=== PATIENT | male | born 1955 | race African-American/Black ===

== ENCOUNTER 2019-09-15 13:38 | Emergency (ER) | payer MEDICARE, MEDICAID ==
[~2019-09-15] VITALS: Ht 182.9 cm; Wt 91.0 kg
[2019-09-15 13:52] VITALS: BP 137/87
== END 2019-09-15 14:37 | disposition left against medical advice (07) ==
LOC: ER 14:17
DX: R13.10 Dysphagia, unspecified (principal); E78.00 Pure hypercholesterolemia, unspecified; I10 Essential (primary) hypertension; E05.90 Thyrotoxicosis, unspecified without thyrotoxic crisis or storm
CPT/HCPCS: 99283

== ENCOUNTER 2019-09-21 16:04 | Emergency (ER) | payer BC, MEDICAID ==
[~2019-09-21] VITALS: Ht 177.8 cm; Wt 110.0 kg
[2019-09-21] MEDS ORDERED: KETOROLAC 60MG/2ML VIAL IM ONE (17:30)
[2019-09-21 20:00] VITALS: BP 133/74
== END 2019-09-21 20:05 | disposition home or self-care (01) ==
LOC: ER 16:04
DX: R13.10 Dysphagia, unspecified (principal); M54.2 Cervicalgia; E78.00 Pure hypercholesterolemia, unspecified; I10 Essential (primary) hypertension; E05.90 Thyrotoxicosis, unspecified without thyrotoxic crisis or storm
CPT/HCPCS: 76536; 96372; 99284; J1885